=== PATIENT | female | born 1990 | race Caucasian/White ===

== ENCOUNTER 2020-09-28 00:59 | Emergency (ER) | payer OTHER ==
[~2020-09-28] VITALS: Ht 175.3 cm; Wt 56.2 kg
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
--- NOTE | 2020-09-28 01:43 | NUR ---
Patient is resting comfortably in bed with eyes closed. Easily aroused. Will cont to monitor ,
--- NOTE | 2020-09-28 01:47 | NUR ---
[employer] at bed side to make report
[2020-09-28 03:30] VITALS: BP 134/79
--- NOTE | 2020-09-28 03:30 | NUR ---
PER DR. CARRASCO, PT MEDICALLY CLEARED FOR DISCHARGE. PATIENT LEFT WITH [employer]
== END 2020-09-28 03:30 ==
LOC: ER 01:06
DX: S70.12XA Contusion of left thigh, initial encounter (principal); S90.32XA Contusion of left foot, initial encounter; S90.31XA Contusion of right foot, initial encounter; S60.512A Abrasion of left hand, initial encounter; S60.511A Abrasion of right hand, initial encounter; T76.21XA Adult sexual abuse, suspected, initial encounter; F10.10 Alcohol abuse, uncomplicated; F17.200 Nicotine dependence, unspecified, uncomplicated; Y90.9 Presence of alcohol in blood, level not specified; Z88.0 Allergy status to penicillin; W10.8XXA Fall (on) (from) other stairs and steps, initial encounter; Y93.89 Activity, other specified; Y92.89 Other specified places as the place of occurrence of the external cause; Y99.8 Other external cause status

== ENCOUNTER → 2021-12-14 | Emergency (ER) | payer SELFPAY ==
[~2021-12-14] VITALS: Ht 175.3 cm; Wt 56.2 kg
[~2021-12-14] MED LIST: HALOPERIDOL LACTATE INJ 5 MG/ML VIAL IM ONE; HALOPERIDOL LACTATE INJ 5 MG/ML VIAL ONE
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
[2021-12-14 22:56] LABS: BASOPHILS # (AUTO) 0.1 K/uL (0.0-0.2); BASOPHILS % (AUTO) 0.8 % (0.0-2.0); EOSINOPHILS % (AUTO) 1.1 % (0.0-6.0); HEMATOCRIT 38 % (33-45); HEMOGLOBIN 12.5 g/dL (11.5-14.8); LYMPHOCYTES # (AUTO) 2.7 K/uL (0.8-4.8); LYMPHOCYTES % (AUTO) 37.7 % (20.0-44.0); MEAN CORPUSCULAR HGB CONC 33 g/dl (31.0-36.0); MEAN CORPUSCULAR VOLUME 87 fL (82-100); MONOCYTES # (AUTO) 0.4 K/uL (0.1-1.30); NEUTROPHILS # (AUTO) 3.8 K/uL (1.8-8.9); NEUTROPHILS % (AUTO) 54.4 % (43.0-81.0); PLATELET COUNT (AUTO) 287 K/uL (150-450); RED BLOOD CELL COUNT(AUTO) 4.42 MIL/uL (4.0-5.2)
[2021-12-14 23:19] LABS: ALBUMIN 3.5 g/dL (3.4-5.0); BILIRUBIN,DIRECT 0.1 mg/dL (0.0-0.2); BILIRUBIN,TOTAL 0.3 mg/dL (0.2-1.0); CALCIUM, SERUM 7.8 mg/dL (8.5-10.1); CREATININE 0.7 mg/dL (0.6-1.3); POTASSIUM 3.4 mmol/L (3.5-5.1); TOTAL PROTEIN, SERUM 7.1 g/dL (6.4-8.2)
--- NOTE | 2021-12-15 02:00 | NUR ---
PATIENT RESTING IN BED, EASY TO AROUSE, VSS. PATIENT CONNECTED TO CARDIAC AND POX MONITOR. WILL CONTINUE TO MONITOR.
[2021-12-15 03:35] LABS: BILIRUBIN,URINE NEGATIVE (NEGATIVE); COLOR,URINE YELLOW (YELLOW); LEUKOCYTE ESTERASE ,URINE NEGATIVE (NEGATIVE); NITRITE, URINE NEGATIVE (NEGATIVE); PROTEIN,URINE NEGATIVE (NEGATIVE); UGLUCOSE NEGATIVE (NEGATIVE); UROBILINOGEN,URINE 0.2 EU/dL (0.2)
[2021-12-15 05:38] VITALS: BP 120/63
== END | disposition home or self-care (01) ==
LOC: ER 22:11
DX: F10.129 Alcohol abuse with intoxication, unspecified (principal); Z86.69 Personal history of other diseases of the nervous system and sense organs; Z88.0 Allergy status to penicillin; Y90.8 Blood alcohol level of 240 mg/100 ml or more
CPT/HCPCS: 36415; 80048; 80076; 80143; 80307; 80320; 82962; 85025; 96372; 99285; J1630; G0480